=== PATIENT | male | born 1960 | race Caucasian/White ===

== ENCOUNTER 2024-02-15 22:06 | Emergency (ER) | payer OTHER, SELFPAY ==
[2024-02-15] MEDS ORDERED: ONDANSETRON 4 MG/2 ML VIAL ONE (22:40)
[2024-02-15] MEDS ORDERED: NA CHLORIDE 0.9% 1,000 ML ONE (22:41)
[2024-02-15 23:54] LABS: Absolute Lymphocytes (CBC) 1.1 K/uL (0.7-4.9); Absolute Monocytes 0.8 K/uL (0.1-1.3); Absolute Neutrophil 8.4 K/uL (1.8-8.0); Basophils % 0.3 % (0-1.3); Eosinophils % 0.4 % (0-4.4); Hematocrit 41.3 % (39.6-49.0); Hemoglobin 14.3 g/dL (13.6-17.9); Lymphocytes % 10.7 % (15.3-44.8); MCH 32.1 pg (27.0-35.0); MCHC 34.5 g/dL (32.0-36.0); MCV 93.1 fL (80-100); Neutrophils % 80.6 % (41.7-73.7); Nucleated Red Blood Cells % 0.1 % (0-0); Platelets 176 thou/uL (152-406); RBC Red Blood Cell Count 4.44 M/uL (4.33-5.43); Red Cell Distribution Width 13.8 % (12.1-15.2)
[2024-02-16 00:06] LABS: Albumin 4.4 g/dL (3.4-5.0); Albumin/Globulin Ratio 1.3 (1.1-1.8); Anion Gap 10.8 mEq/L (5.0-15.0); Bilirubin Total 0.8 mg/dL (0.2-1.0); Globulin 3.5 g/dL (2.3-3.5); Potassium 3.8 mEq/L (3.5-5.1); Protein, Total 7.9 g/dL (6.4-8.2)
[2024-02-16 00:11] LABS: Specific Gravity 1.022 (1.005-1.030); Sqamous Epithelial <5 /HPF (None Seen); Urine Bacteria 20-50 /HPF (<20); Urine Bilirubin NEGATIVE (Negative); Urine Blood 3+ (Negative); Urine Clarity Extremely Turbid (Clear); Urine Color Yellow (Yellow); Urine Culture Reflex Order REFLEXED; Urine Glucose TRACE (Negative); Urine Ketones 1+ (Negative); Urine Microscopic Reflex YN ORDER UMIC; Urine Mucus 2+ /HPF (None Seen); Urine Nitrite NEGATIVE (Negative); Urine Protein 1+ (Negative); Urine RBC 21-50 /HPF (None Seen); Urine Urobilinogen Normal (Normal); Urine WBC 20-50 /HPF (<5); Urine pH 5.5 (5.0-7.0)
[2024-02-16] MEDS ORDERED: ONDANSETRON 4 MG (ODT) TAB ONE (02:42)
[2024-02-16] MEDS ORDERED: TAMSULOSIN 0.4 MG SR CAP ONE (02:42)
--- NOTE | 2024-02-16 02:42 | EDPHYS ---
Physician Documentation [facility] Name: Toribio Rojas Age: 63 yrs Sex: Male : 1960 Arrival Date: 02/15/2024 Time: 22:06 Bed 16 Private MD: ED Physician Brigido Mcgrath HPI: 02/14 23:17 This 63 yrs old Male presents to ER via Ambulatory with complaints of Constipation - kb X2days. 23:17 Pt is a 63 year old male who presents for constipation for 2 days with nausea and kb abdominal pain that started in the middle of the night. States he took dulcolax, stool softeners and miralax but symptoms persisted. Reports he vomited once just bar captain. . Historical: - Allergies: 02/15 00:13 Saphris; ha1 - Immunization history:: Adult Immunizations up to date. - Infectious Disease History:: Denies. - Social history:: Smoking status: unknown. ROS: 02/14 23:25 Constitutional: As per HPI kb Exam: 23:25 Constitutional: This is a well developed, well nourished patient who is awake, alert, kb and in no acute distress. Head/Face: Normocephalic, atraumatic. ENT: Moist Mucous membranes Cardiovascular: Regular rate Respiratory: Respirations even and unlabored. No increased work of breathing. Talking in full sentences Skin: Warm, dry with normal turgor. Normal color. MS/ Extremity: Pulses equal, no cyanosis. Neurovascular intact. Full, normal range of motion. Neuro: Awake and alert, GCS 15, oriented to person, place, time, and situation. Moves all extremities. Normal gait. 23:25 Abdomen/GI: Inspection: abdomen appears normal, Bowel sounds: normal, Palpation: soft, in all quadrants, mild abdominal tenderness, in the left upper quadrant and left lower quadrant, Vital Signs: 22:32 BP 141 / 64; Pulse 83; Resp 16; Temp 97.8(TE); Pulse Ox 100% on R/A; Weight 83.91 kg km8 (R); Height 5 ft. 10 in. (R); Pain 5/10; 22:40 BP 129 / 59; Pulse 81; Resp 17 S; Pulse Ox 100% on R/A; ha1 23:30 BP 110 / 66; Pulse 65; Resp 17 S; Pulse Ox 98% on R/A; ha1 02/15 00:00 BP 122 / 62; Pulse 67; Resp 17 S; Pulse Ox 98% on R/A; ha1 01:00 BP 100 / 57; Pulse 62; Resp 17 S; Temp 98.2(O); Pulse Ox 98% on R/A; ha1 02:50 BP 103 / 71; Pulse 66; Resp 17; Temp 98.2; Pulse Ox 97% ; Pain 2/10; bm8 02/14 22:32 Body Mass Index 26.54 (83.91 kg, 177.8 cm) km8 02/14 22:32 Pain Scale: Adult km8 02:50 Pain Scale: Adult bm8 Stevinson Coma Score: 02:50 Eye Response: spontaneous(4). Motor Response: obeys commands(6). Verbal Response: bm8 oriented(5). Total: 15. MDM: 02/14 22:13 Patient medically screened. kb 23:25 Differential diagnosis: bowel obstruction, diverticulitis, non-specific abd pain, kb Ureterolithiasis, urinary tract infection. Data reviewed: vital signs, nurses notes. 02/15 00:58 Transition of care: After a detail discussion of the patient's case, care is kb transferred to Brigido Mcgrath MD. 02:27 ED course: TECHNIQUE: CT of the abdomen and pelvis without contrast. All CT scans at [facility] this facility use dose modulation, iterative reconstruction, and/or weight based dosing when appropriate to reduce radiation dose to as low as reasonably achievable. COMPARISON: None. FINDINGS: Lower thorax: Bibasilar atelectasis. Abdomen: Stomach:Within normal limits Liver:No focal lesions. No intrahepatic ductal distention. Gallbladder:Nondistended Pancreas:Within normal limits Spleen:Within normal limits Right kidney:No hydronephrosis. No renal or ureteral calculi. Left kidney:Mild hydroureteronephrosis. Stranding surrounding the kidney and ureter. No renal or ureteral calculi. Adrenal glands:Within normal limits Vascular structures:Atherosclerosis of the abdominal aorta and major branches. Lymph nodes:No lymphadenopathy by size criteria Pelvis: Small bowel:No significant distention. Appendix:Not visualized. Colon:No distention or acute pericolonic edema. Postoperative changes of the bowel in the right abdomen. Moderate stool burden. Peritoneum: No free intraperitoneal fluid or air. Bones: No acute bone findings. Postoperative changes of the right hip. Bladder: Unremarkable. Reproductive organs: No acute findings. Soft tissues: Postoperative changes of bilateral inguinal regions, likely sequela of prior hernia repair. Note that evaluation of the bowel and solid organs is somewhat limited due to lack of intravenous and oral contrast. IMPRESSION: 1. Mild left-sided hydroureteronephrosis with perinephric/periureteral stranding. No renal or ureteral calculi. Findings could be secondary to recently passed stone versus ascending urinary tract infection. Recommend correlation with urinalysis. 2. Moderate stool burden. . 02:36 Differential Diagnosis altered mental status, sepsis, flu, Renal stone . Consideration sp4 of Admission/Observation Escalation of care including admission/observation considered. ED course: UA reveals microscopic hematuria,, and the CT reveals findings secondary to recently passed kidney stone.. 02/14 22:33 Order name: CBC with Diff; Complete Time: 00:02 kb 02/14 22:33 Order name: CMP; Complete Time: 00:07 kb 02/14 22:33 Order name: Lipase; Complete Time: 00:07 kb 02/14 22:33 Order name: Urinalysis w/ reflexes; Complete Time: 00:13 kb 02/15 00:16 Order name: Urine Culture [facility] 02/15 00:12 Order name: Abdomen EDWV 02/14 22:33 Order name: IV Saline Lock; Complete Time: 22:49 kb 02/14 22:33 Order name: Labs collected and sent; Complete Time: 22:49 kb Administered Medications: 02/14 22:50 Drug: NS 0.9% IV 1000 ml IV at 1000 ml once Route: IV; Rate: 1000 ml; Site: left [facility] antecubital; 02/15 01:57 Follow up: Response: No adverse reaction; IV Status: Completed infusion; IV Intake: bm8 1000ml 02/14 22:50 Drug: Ondansetron IVP 4 mg IVP once; over 2 minutes Route: IVP; Site: left antecubital; [facility] 02/15 01:57 Follow up: Response: No adverse reaction bm8 02:50 Drug: Flomax PO 0.4 mg PO once Route: PO; bm8 02:52 Follow up: Response: Medication administered at discharge. bm8 02:50 Drug: Ondansetron PO 4 mg PO once Route: PO; bm8 02:52 Follow up: Response: Medication administered at discharge. bm8 Disposition: 02:39 Co-signature as Attending Physician, Brigido Mcgrath MD I agree with the assessment sp4 and plan of care. I reviewed the patient's care provided by Advanced Practice Provider \T\ agree w/ the diagnosis \T\ care plan. I personally saw the pt \T\ performed a substantive portion of the visit, incldng all aspects of the (History/Exam/Medical Decision Making). Disposition Summary: 02/16/24 02:41 Discharge Ordered Notes: Location: Home sp4 Problem: new sp4 Symptoms: have improved sp4 Condition: Stable sp4 Diagnosis - Left flank pain, constipation, left hydronephrosis, microscopic hematuria sp4 Followup: sp4 - With: Private Physician - When: 7 - 10 days - Reason: Recheck today's complaints Discharge Instructions: - Discharge Summary Sheet sp4 - Kidney Stones, [id number] sp4 Forms: - Patient Portal Instructions sp4 Prescriptions: - tamsulosin 0.4 mg Oral capsule - take 1 capsule ORAL route daily for 30 days; 30 capsule; Refills: 0, Product sp4 Selection Permitted - ondansetron 8 mg Oral Tablet,disintegrating - take 1 tablet ORAL route every 8 hours PRN nausea; 30 tablet; Refills: 0, sp4 Product Selection Permitted Signatures: Dispatcher [employer] EDYelitza Angelo, SENIOR NET DEVELOPER ARCHITECT-C SENIOR NET DEVELOPER ARCHITECT-CkChloé Liriano, RN RN haBrigido Palacios MD MD sp4 Ivet Collins RN RN km8 Amaury Cortes RN RN bm8 Corrections: (The following items were deleted from the chart) 02/14 22:34 22:34 CBC+H.LAB.BRZ ordered. EDMS EDMS 22:34 22:34 COMPREHENSIVE METABOLIC PANEL+C.LAB.BRZ ordered. EDMS EDMS 22:34 22:34 LIPASE+C.LAB.BRZ ordered. EDMS EDMS 22:34 22:34 Urinalysis+U.LAB.BRZ ordered. EDMS EDMS 02/15 00:12 02/14 22:34 Abdomen Pelvis W Con+CT.RAD.BRZ ordered. EDMS EDMS
--- NOTE | 2024-02-16 02:42 | ER ---
Nurse's Notes [facility] Name: Toribio Rojas Age: 63 yrs Sex: Male : 1960 Arrival Date: 02/15/2024 Time: 22:06 Bed 16 Private MD: Diagnosis: Left flank pain, constipation, left hydronephrosis, microscopic hematuria Presentation: 02/14 22:30 Chief complaint: Patient states: constipation for 2 days with LLQ pain. Coronavirus km8 screen: Client denies travel out of the [place] in the last 14 days. Ebola Screen: No symptoms or risks identified at this time. Initial Sepsis Screen: Does the patient meet any 2 criteria? No. Patient's initial sepsis screen is negative. Does the patient have a suspected source of infection? No. Patient's initial sepsis screen is negative. Risk Assessment: Do you want to hurt yourself or someone else? Patient reports no desire to harm self or others. Onset of symptoms was February 13, 2024. 22:30 Method Of Arrival: Ambulatory km8 22:30 Acuity: SASHA 3 km8 Triage Assessment: 22:30 General: Appears in no apparent distress. comfortable, Behavior is calm, cooperative, km8 appropriate for age. Pain: Complains of pain in left lower quadrant Pain currently is 5 out of 10 on a pain scale. EENT: No signs and/or symptoms were reported regarding the EENT system. Neuro: Level of Consciousness is awake, alert, obeys commands, Oriented to person, place, time, situation. Cardiovascular: Denies chest pain, shortness of breath, Patient's skin is warm and dry. Respiratory: Airway is patent Respiratory effort is even, unlabored, Respiratory pattern is regular, symmetrical. GI: Abdomen is tender to palpation in left lower quadrant Reports constipation. : No signs and/or symptoms were reported regarding the genitourinary system. Derm: Skin is intact, is healthy with good turgor, Skin is dry, Skin is pink, warm \T\ dry. normal, Skin temperature is warm cool. Musculoskeletal: No signs and/or symptoms reported regarding the musculoskeletal system. Range of motion: intact in all extremities. Historical: - Allergies: 02/15 00:13 Saphris; ha1 - Immunization history:: Adult Immunizations up to date. - Infectious Disease History:: Denies. - Social history:: Smoking status: unknown. Screenin/10 22:54 Abuse screen: Denies threats or abuse. Denies injuries from another. Nutritional ha1 screening: No deficits noted. Tuberculosis screening: No symptoms or risk factors identified. 02/15 00:13 [facility] ED Fall Risk Assessment (Adult) History of falling in the last 3 months, ha1 including since admission No falls in past 3 months (0 pts) Confusion or Disorientation No (0 pts) Intoxicated or Sedated No (0 pts) Impaired Gait No (0 pts) Mobility Assist Device Used No (0 pt) Altered Elimination No (0 pt) Score/Fall Risk Level 0 - 2 = Low Risk Oriented to surroundings, Maintained a safe environment, Educated pt \T\ family on fall prevention, incl call for assistance when getting out of bed, Hourly rounding (assess needs \T\ fall precautionary measures) done. Assessment: 02/14 22:30 General: Appears comfortable, Behavior is calm, cooperative. Pain: Complains of pain in ha1 abdomen. Pain: Pain does not radiate. Pain currently is 4 out of 10 on a pain scale. Neuro: Level of Consciousness is awake, alert, obeys commands. Cardiovascular: Capillary refill < 3 seconds Patient's skin is warm and dry. Respiratory: Airway is patent Respiratory effort is even, unlabored, Respiratory pattern is regular, symmetrical. GI: Abdomen is round non-distended, Bowel sounds present X 4 quads. Reports lower abdominal pain, constipation, cramping, nausea. : Urine is clear. Derm: Skin is pink, warm \T\ dry. 23:00 Reassessment: Patient and/or family updated on plan of care and expected duration. Pain ha1 level reassessed. Patient is alert, oriented x 3, equal unlabored respirations, skin warm/dry/pink. 02/15 00:00 Reassessment: Patient and/or family updated on plan of care and expected duration. Pain ha1 level reassessed. Patient is alert, oriented x 3, equal unlabored respirations, skin warm/dry/pink. 01:00 Reassessment: Patient and/or family updated on plan of care and expected duration. Pain ha1 level reassessed. Patient is alert, oriented x 3, equal unlabored respirations, skin warm/dry/pink. 02:35 Reassessment: Patient appears in no apparent distress at this time. Patient and/or km8 family updated on plan of care and expected duration. Pain level reassessed. Patient is alert, oriented x 3, equal unlabored respirations, skin warm/dry/pink. Dr. Mcgrath at bedside discussing results with pt. 02:50 Reassessment: Patient appears in no apparent distress at this time. Patient and/or bm8 family updated on plan of care and expected duration. Pain level reassessed. Patient is alert, oriented x 3, equal unlabored respirations, skin warm/dry/pink. Patient states symptoms have improved. Vital Signs: 02/14 22:32 BP 141 / 64; Pulse 83; Resp 16; Temp 97.8(TE); Pulse Ox 100% on R/A; Weight 83.91 kg km8 (R); Height 5 ft. 10 in. (R); Pain 03/16; 22:40 BP 129 / 59; Pulse 81; Resp 17 S; Pulse Ox 100% on R/A; ha1 23:30 BP 110 / 66; Pulse 65; Resp 17 S; Pulse Ox 98% on R/A; ha1 02/15 00:00 BP 122 / 62; Pulse 67; Resp 17 S; Pulse Ox 98% on R/A; ha1 01:00 BP 100 / 57; Pulse 62; Resp 17 S; Temp 98.2(O); Pulse Ox 98% on R/A; ha1 02:50 BP 103 / 71; Pulse 66; Resp 17; Temp 98.2; Pulse Ox 97% ; Pain 2/10; bm8 02/14 22:32 Body Mass Index 26.54 (83.91 kg, 177.8 cm) [facility] 02/14 22:32 Pain Scale: Adult 8 02:50 Pain Scale: Adult bm8 Alfredo Coma Score: 02:50 Eye Response: spontaneous(4). Motor Response: obeys commands(6). Verbal Response: bm8 oriented(5). Total: 15. ED Course: 02/14 22:11 Patient arrived in ED. ra3 22:13 Yelitza Talbert FNP-C is [facility]. kb 22:13 Brigido Mcgrath MD is Attending Physician. kb 22:30 Triage completed. km8 22:32 Arm band placed on right wrist. km8 22:35 Patient has correct armband on for positive identification. Placed in gown. Bed in low ha1 position. Call light in reach. Side rails up X 1. 22:36 Radiology exam delayed due to lab results not completed at this time. (BUN/Creatinine) eh4 IV insertion attempt and/or patient not having appropriate IV at this time. 22:39 Chloé Galvez, RN is Primary Nurse. ha1 22:46 Inserted saline lock: 20 gauge in right antecubital area, using aseptic technique. rv1 Blood collected. 22:49 CBC with Diff Sent. ha1 22:49 CMP Sent. ha1 22:50 Lipase Sent. ha1 22:50 Urinalysis w/ reflexes Sent. ha1 02/15 00:33 Abdomen In Process Unspecified. EDMS 02:36 No provider procedures requiring assistance completed. km8 02:50 Provided Education on: discharge instructions and post er care. Pulse ox on. NIBP on. bm8 02:50 IV discontinued, intact, bleeding controlled, No redness/swelling at site. Pressure bm8 dressing applied. Administered Medications: 02/14 22:50 Drug: NS 0.9% IV 1000 ml IV at 1000 ml once Route: IV; Rate: 1000 ml; Site: left ha1 antecubital; 02/15 01:57 Follow up: Response: No adverse reaction; IV Status: Completed infusion; IV Intake: bm8 1000ml 02/14 22:50 Drug: Ondansetron IVP 4 mg IVP once; over 2 minutes Route: IVP; Site: left antecubital; [facility] 02/15 01:57 Follow up: Response: No adverse reaction bm8 02:50 Drug: Flomax PO 0.4 mg PO once Route: PO; bm8 02:52 Follow up: Response: Medication administered at discharge. bm8 02:50 Drug: Ondansetron PO 4 mg PO once Route: PO; bm8 02:52 Follow up: Response: Medication administered at discharge. bm8 Medication: 00:13 VIS not applicable for this client. ha1 Intake: 01:57 IV: 1000ml; Total: 1000ml. bm8 Outcome: 02:41 Discharge ordered by . sp4 02:50 Discharged to home ambulatory, bm8 02:50 Condition: stable 02:50 Discharge instructions given to patient, Instructed on discharge instructions, follow up and referral plans. medication usage, safety practices, 02:53 Patient left the ED. bm8 Signatures: Dispatcher [employer] EDMS Yelitza Talbert, FRANCIS-C [employer]-Chloé Coffman, RN RN ha1 Zena Cassidy 4 Lien Rainey 1 Brigido Mcgrath MD MD sp4 Ivet Collins RN RN 8 Carole Egan 3 Amaury Cortes RN RN 8 Corrections: (The following items were deleted from the chart) 02/14 22:33 22:30 Chief complaint: Patient states: constipation for 2 days with left sided pain km8 km8 02/15 01:54 01:00 BP 100 / 57; Pulse 62bpm; Resp 17bpm; Spontaneous; Pulse Ox 98% RA; ha1 1
[2024-02-16 05:41] VITALS: BP 103/71; TEMP 98.2; O2SAT 97
--- NOTE | 2024-02-16 12:43 | RAD REPORT ---
EXAM DESCRIPTION: CT - Abdomen Pelvis Wo Contrast - 02/16/2024 6:44 am RadLex: CT ABDOMEN PELVIS WITHOUT IV CONTRAST CLINICAL HISTORY: 63 years Male; LLQ PAIN, CONSTIPATION; IV ONLY Bed Name: 16 TECHNIQUE: CT of the abdomen and pelvis without contrast. All CT scans at this facility use dose modulation, iterative reconstruction, and/or weight based dosi ng when appropriate to reduce radiation dose to as low as reasonably achievable. COMPARISON: None. FINDINGS: Lower thorax: Bibasilar atelectasis. Abdomen: Stomach: Within normal limits Liver: No focal lesions. No intrahepatic ductal distention. Gallbladder: Nondistended Pancreas: Within normal limits Spleen: Within normal limits Right kidney: No hydronephrosis. No renal or ureteral calculi. Left kidney: Mild hydroureteronephrosis. Stranding surrounding the kidney and ureter. No renal or ure teral calculi. Adrenal glands: Within normal limits Vascular structures: Atherosclerosis of the abdominal aorta and major branches. Lymph nodes: No lymphadenopathy by size criteria Pelvis: Small bowel: No significant distention. Appendix: Not visualized. Colon: No distention or acute pericolonic edema. Postoperative changes of the bowel in the right abdo men. Moderate stool burden. Peritoneum: No free intraperitoneal fluid or air. Bones: No acute bone findings. Postoperative changes of the right hip. Bladder: Unremarkable. Reproductive organs: No acute findings. Soft tissues: Postoperative changes of bilateral inguinal regions, likely sequela of prior hernia rep air. Note that evaluation of the bowel and solid organs is somewhat limited due to lack of intravenous and oral contrast. IMPRESSION: 1. Mild left-sided hydroureteronephrosis with perinephric/periureteral stranding. No r enal or ureteral calculi. Findings could be secondary to recently passed stone versus ascending urina ry tract infection. Recommend correlation with urinalysis. 2. Moderate stool burden. Electronically signed by: Edel Johnston MD 02/16/2024 12:44 AM CDT Due to temporary technical issues with the PACS/Fluency reporting system, reports are being signed by the in house radiologist without review as a courtesy to ensure prompt reporting. The interpreting r adiologist is fully responsible for the content of the report.
== END 2024-02-16 02:53 | disposition home or self-care (01) ==
LOC: ER 22:06
DX: K59.00 Constipation, unspecified (principal); N13.30 Unspecified hydronephrosis; R31.29 Other microscopic hematuria; Z88.8 Allergy status to other drugs, medicaments and biological substances
CPT/HCPCS: 96361; 85025; 81001; 87086; 36415; 83690; 80053; 74176; 96374; 99284; Q0162; J2405; J7030; 87088